=== PATIENT | female | born 1985 | race Hispanic/Latino ===

== ENCOUNTER 2016-11-14 17:22 | Emergency (ER) | payer MEDICAID ==
[2016-11-14 17:37] VITALS: BP 125/86
--- NOTE | 2016-11-14 17:42 | Emergency Department Report ---
Chief Complaint: Abdominal Pain Stated Complaint: SICK Time Seen by Provider: 11/14/16 17:38 - HPI History of Present Illness: PT c/o intermittent abd pain and vomiting x 3-4 weeks pt states she has had her gallbladder removed - ROS Review of Systems: + abd pain, worse after eating + n/v - Exam Vital Signs: Vital Signs 11/14/16 17:32 Temperature 98.1 F Pulse Rate 103 H Respiratory 20 Rate Blood Pressure 125/86 O2 Sat by Pulse 100 Oximetry Physical Exam: PT is morbidly obese pt has RUQ tenderness MSE screening note: Focused history and physical exam performed. Due to findings the following was ordered: ED Disposition for MSE Condition: Stable Instructions: Abdominal Pain (ED)
[2016-11-14 18:11] LABS: Basophils % (Auto) 0.4 % (0.0-1.8); Eosinophils % (Auto) 1.6 % (0.0-4.3); Hematocrit 42.8 % (30.3-42.9); Hemoglobin 14.5 gm/dl (10.1-14.3); Mean Corpuscular HGB Conc 34 % (30-34); Mean Corpuscular Hemoglobin 31 pg (28-32); Mean Corpuscular Volume 92 fl (79-97); Platelet Count 237 K/mm3 (140-440); Red Blood Count 4.64 M/mm3 (3.65-5.03); Red Cell Distribution Width 13.5 % (13.2-15.2); White Blood Count 6.7 K/mm3 (4.5-11.0)
[2016-11-14 18:28] LABS: Alanine Aminotransferase 34 units/L (7-56); Albumin 4.4 g/dL (3.9-5); Albumin/Globulin Ratio 1.2 %; Alkaline Phosphatase 92 units/L (35-129); Anion Gap 19 mmol/L; BUN/Creatinine Ratio 13.33; Blood Urea Nitrogen 12 mg/dL (7-17); Calcium 9.4 mg/dL (8.4-10.2); Carbon Dioxide 27 mmol/L (22-30); Chloride 100.6 mmol/L (98-107); Glucose 107 mg/dL (65-100); Lipase 34 units/L (13-60); Potassium 4.5 mmol/L (3.6-5.0); Sodium 142 mmol/L (137-145)
--- NOTE | 2016-11-15 15:13 | ED Elopement Review ---
ED Pt Elopement review - Results review Lab results: Laboratory Tests 11/14/16 11/14/16 11/14/16 17:43 17:43 17:43 WBC 6.7 RBC 4.64 Hgb 14.5 H Hct 42.8 MCV 92 MCH 31 MCHC 34 RDW 13.5 Plt Count 237 Lymph % (Auto) 33.2 [place] % (Auto) 7.6 H Eos % (Auto) 1.6 Baso % (Auto) 0.4 Lymph # 2.2 [place] # 0.5 Eos # 0.1 Baso # 0.0 Seg Neutrophils % 57.2 Seg Neutrophils # 3.8 Sodium 142 Potassium 4.5 Chloride 100.6 Carbon Dioxide 27 Anion Gap 19 BUN 12 Creatinine 0.9 Estimated GFR > 60 BUN/Creatinine Ratio 13.33 Glucose 107 H Calcium 9.4 Total Bilirubin 0.40 AST 23 ALT 34 Alkaline Phosphatase 92 Total Protein 8.0 Albumin 4.4 Albumin/Globulin Ratio 1.2 Lipase 34 HCG, Qual Negative - Call Back decision Pt Call Back Decision: Pt to F/U with PMD
== END 2016-11-15 00:48 | disposition left against medical advice (07) ==
LOC: ED 17:22
DX: Z53.21 Procedure and treatment not carried out due to patient leaving prior to being seen by health care provider (principal)
CPT/HCPCS: 36415; 80053; 83690; 84703; 85025